=== PATIENT | female | born 1970 | race Caucasian/White ===

== ENCOUNTER 2021-03-10 08:34 | Emergency (ER) | payer OTHER ==
[~2021-03-10] VITALS: Ht 167.6 cm; Wt 86.2 kg
[2021-03-10] MEDS ORDERED: TOPROL XL50 M1 (08:41)
[2021-03-10] MEDS ORDERED: SYNTHROID88 MCG (08:41)
[2021-03-10] MEDS ORDERED: IRBESARTAN150 MG (08:41)
[2021-03-10] MEDS ORDERED: MILLIPRED5 MG (08:41)
[2021-03-10] MEDS ORDERED: PAMELOR75 M1 (08:41)
[2021-03-10] MEDS ORDERED: IPRAT-ALBUT 0.5-3 ML IH (14:06)
[2021-03-10] MEDS ORDERED: MEDROLPACK PO (14:06)
[2021-03-10] MEDS ORDERED: ZITHROMAX500 MG PO (14:06)
[2021-03-10] MEDS ORDERED: PROMETH-CODEIN 65 ML PO (14:06)
== END 2021-03-10 14:27 ==
LOC: ER 08:34
DX: J98.01 Acute bronchospasm (principal); R05.9 Cough, unspecified; J06.9 Acute upper respiratory infection, unspecified; Z03.818 Encounter for observation for suspected exposure to other biological agents ruled out

== ENCOUNTER 2021-05-21 10:34 | Outpatient (CLI) | payer OTHER ==
[~2021-05-21 10:34] MED LIST: IPRAT-ALBUT 0.5-3 ML IH; IRBESARTAN150 MG; MEDROLPACK PO; MILLIPRED5 MG; PAMELOR75 M1; PROMETH-CODEIN 65 ML PO; SYNTHROID88 MCG; TOPROL XL50 M1; ZITHROMAX500 MG PO
== END 2021-05-21 10:36 | disposition home or self-care (01) ==
LOC: SONOGRAMA 10:34
PROVIDERS: ATTEND Pathology Anatomic Pathology & Clinical Pathology
DX: E06.3 Autoimmune thyroiditis (principal)

== ENCOUNTER 2024-03-09 08:31 | Emergency (ER) | payer OTHER ==
[~2024-03-09] VITALS: Ht 165.1 cm; Wt 86.2 kg
== END 2024-03-09 09:15 | disposition home or self-care (01) ==
LOC: ER 08:33
DX: H11.32 Conjunctival hemorrhage, left eye (principal); Z88.6 Allergy status to analgesic agent; M32.8 Other forms of systemic lupus erythematosus; I10 Essential (primary) hypertension